=== PATIENT | female | born 1960 | race Caucasian/White ===

== ENCOUNTER 2023-03-14 10:13 | Emergency (ER) | payer OTHER, SELFPAY ==
--- NOTE | ~2023-03-14 | CT_ITS ---
Examination: CT brain and CT cervical spine without contrast. Clinical indications: Head strike, status post fall. COMPARISON: None. TECHNIQUE: 5 minutes thin axial and reformatted 2 mm thin sagittal coronal images of brain were obtained. Subsequently axial 3 mm thin and reformatted 2 minutes thin sagittal coronal images of cervical spine were obtained. DLP [id number]. This CT examination was performed using dose optimization technique as appropriate, variously including the following: Automated exposure control Adjustment of MA and/or KV according to patient size(this includes techniques or standardized protocols for targeted exams where dose is matched to indication/reason for exam; extremities or head. Use of iterative reconstruction techniques. FINDINGS: Brain: There is a right posterior parietal lobe scalp hematoma and skin thickening but no visible acute fracture or bony abnormality. There is a small right parietal partially hyperdense or calcified lesion within the skin, ? Neurofibroma versus sebaceous cyst. There is no acute intra-axial, extra-axial bleed, masses or midline shift. There is no acute infarction evolution. There is no edema the pineda to white matter differentiation is maintained. The lateral ventricles are symmetrical in size and configuration without enlargement. Bone windows reveal no calvarial abnormality. Cervical spine: There is mild straightening of cervical lordosis. The vertebral heights, alignment is normal. There is loss of C5-C6, C6-C7 and C7-T1 disc heights with mild ventral and posterior spondylosis. Rest the disc heights are normal. There is degenerative disc bulge/osteophyte complex C4-C5, C5-C6 disc levels with mild bilateral narrowing of neural foramina at these disc levels slightly worse on the right at the C4-C5 and C5-C6 disc levels secondary to uncovertebral hypertrophic changes. No aggressive lytic or sclerotic process seen. The craniovertebral junction and C1-C2 alignment is normal. CT/CT cervical spine wo IV con IMPRESSION: No acute intracranial process seen. Right parietal moderate scalp hematoma without calvarial fracture. Right parietal scalp lesion is noted most likely skin wart or sebaceous cyst. Mild straightening of cervical lordosis without any acute fracture or dislocation. Degenerative spondylosis as described above.
[2023-03-14 10:24] VITALS: BP 195/66; PULSE 76; RESP 18; TEMP 36.3; O2SAT 98; BMI 30.3
--- NOTE | 2023-03-14 12:48 | ED.HEATRA ---
HPI - Head Injury General Chief complaint: Head Injury Stated complaint: Head Pain S/P Fall 03/14/23 Time Seen by Provider: 03/14/23 10:48 Source: patient and RN notes reviewed Mode of arrival: ambulatory Limitations: no limitations History of Present Illness HPI Narrative: This is a 62-year-old female presenting to the emergency department for evaluation of head injury which occurred prior to her arrival today. Patient states that while she was walking outdoors, she accidentally slipped on black ice and fell backwards striking her posterior head on concrete. Patient denies loss of consciousness. She is not on anticoagulants. She reports some mild tenderness to her posterior head. Otherwise no headache, dizziness, lightheadedness, chest pain, shortness breath, abdominal pain, nausea, vomiting or diarrhea. Denies any neck pain. No other complaints or concerns at this time. MD Complaint: head injury and fall Onset (ago): minute(s) Mechanism of Injury: fall Place: home Loss of Consciousness: no Location of injury: occipital Quality: aching Radiation: none Other Injuries: none Associated symptoms: denies other symptoms Related Data Allergies Allergy/AdvReac Type Severity Reaction Status Date / Time fluoxetine [From Prozac] Allergy Intermediate Blister Verified 03/14/23 10:23 Penicillins Allergy Unknown Verified 03/14/23 10:23 Review of Systems Review of Systems: Yes all other systems are reviewed and are negative Constitutional: Constitutional: Reports as per HPI [facility] Past Medical History Attestation statement: The following information was validated with the patient. Social History Social History Advance Directives: No Advance Directives Information Provided: Yes Physical Exam Vital Signs: Vital Signs: Last Vital Signs Temp 97.4 F 03/14/23 10:24 Pulse 76 03/14/23 10:24 Resp 18 03/14/23 10:24 BP 195/66 H 03/14/23 10:24 Pulse Ox 98 03/14/23 10:24 O2 Del Method Room Air 03/14/23 10:24 BMI result Body Mass Index 30.3 Const: General: cooperative, comfortable and no acute distress Orientation/consciousness: patient oriented x3 Limitations: no limitations HEENT: Other: Tenderness to palpation along the occiput with hematoma noted, no bony step-off or deformity. Head: Yes normal to inspection, Yes normocephalic, Yes atraumatic, No Calero's sign, No raccoon eyes and No periorbital ecchymosis Ears: hearing grossly normal bilaterally and TM's normal bilaterally (No hemotympanum) General nose exam: Normal external nose present Face and sinus: Yes normal facial exam Mouth: Normal oral and palatal mucosa present, oropharynx normal and moist mucous membranes Throat: Yes posterior oropharynx normal Eyes: General: appearance normal, both eyes and all related structures Eyelids: Yes eyelids normal Conjunctivae: conjunctivae normal Sclerae: sclerae normal Pupils: Equal, round and reactive pupils present EOM: EOMs intact bilaterally Neck: Other: No midline cervical spine tenderness. Neck: Yes normal visual inspection, Yes full ROM and Yes no lymphadenopathy Lymphatic: no lymphadenopathy noted Chest: Chest palpation & inspection: normal inspection of the chest Resp: Effort & Inspection: normal respiratory effort and able to speak in complete sentences Auscultation: clear to auscultation bilaterally, no crackles, no rales, no rhonchi and no wheezes Cardio: Rate: regular rate Rhythm: regular rhythm Heart sounds: S1 normal heart sound present and S2 normal heart sound present GI: Inspection: Yes normal to inspection Skin: General skin exam: no rashes or lesions noted Trauma: no lacerations or abrasions Wounds: no wounds Neuro: General: patient oriented x3 and moves all extremities Cranial nerves: Yes CN's II-XII intact bilaterally, Yes Equal, round and reactive pupils present and Yes Nystagmus not present Cognition (Neuro): normal cognition Gait exam (Neuro): Normal gait present Motor exam (neuro): 5/5 motor strength present throughout and Pronator motor function not present Extrem: General: Yes normal to inspection Right upper extremity: normal to inspection Left upper extremity: normal to inspection Right lower extremity: normal to inspection Left lower extremity: normal to inspection Course Reevaluation(s) Reevaluation #1: CT head and CT neck do not reveal any acute findings. Discussed these results with patient. Informed her of elevated blood pressure, she states that she will follow up outpatient as this is likely due to white coat syndrome. She does not have any chest pain or shortness of breath. No dizziness or lightheadedness. Discussed return precautions. Patient understands and agrees with plan. Patient stable for discharge. Time: 12:57 Medical Decision Making Medical Decision Making MDM Narrative: This is a 62-year-old female presenting to the emergency department for evaluation of head injury status post mechanical fall which occurred today. Patient slipped and fell on black ice striking her posterior head. Patient is hypertensive at 195/66, patient states that she has severe white coat syndrome and is anxious of being here. Patient has tenderness to palpation along her occiput, no midline spine tenderness. She had no loss of consciousness, she is neurologically intact. Given head injury with hematoma noted to her head, will obtain CT head and neck to rule out any intracranial findings. Plan CT head, CT neck Differential Diagnosis Differential Diagnoses: The differential diagnosis associated with the presentation includes ICH, skull fracture, intracranial mass, closed head injury Admission/Observation Consideration of admission/observation: Escalation of care including admission/observation considered Patient would have been admitted to the hospital had her work up had any findings where hospital admission was appropriate and her clinical presentation warranted hospital admission. Radiology Impression Discussion of test interpretation with radiology: I have reviewed the radiologist's reading. External Record Review External record reviewed: Inpatient record, Office record, Outpatient record, Prior outpatient labs, Prior outpatient radiology, Primary care record and Outside ED record Discharge Plan Discharge Clinical Impression: Closed head injury Patient Disposition: Home, Self-Care Instructions: Head Injury (ED) Additional Instructions: Your seen in the emergency department after a slip and fall. Your CT head and CT neck do not show any new injuries. You do have degenerative changes in your cervical spine. Please rest. Mental and physical rest can help your brain heal faster. Avoid prolonged screen time. You may take Tylenol as needed for pain. Ice to the back of your head can help with symptoms. If any new or worsening symptoms occur including but not limited to worsening headaches, dizziness, lightheadedness, chest pain, shortness of breath, please return for re-evaluation. Interventions: ED Discharge Assessment Last Done: 03/14/23 12:54 Discharge Date/Time: 03/14/23 12:54
== END 2023-03-14 12:54 | disposition home or self-care (01) ==
PROVIDERS: Emergency Provider Emergency Medicine
DX: S09.90XA Unspecified injury of head, initial encounter (principal); W00.0XXA Fall on same level due to ice and snow, initial encounter; Y93.01 Activity, walking, marching and hiking; Y92.410 Unspecified street and highway as the place of occurrence of the external cause; Y99.9 Unspecified external cause status
CPT/HCPCS: 70450; 72125; 99282; 99284